=== PATIENT | female | born 1990 | race American Indian/Alaskan Native ===

== ENCOUNTER 2019-11-05 11:46 | Emergency (ER) | payer OTHER ==
[2019-11-05 12:02] VITALS: BP 116/78
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
--- NOTE | 2019-11-05 16:11 | XRay Report ---
CHEST 1 VIEW INDICATION: chest pain. COMPARISON: None FINDINGS: Support devices: None. Heart: Within normal limits. Lungs/Pleura: No acute air space or interstitial disease. Additional findings: None. IMPRESSION: 1. No acute findings. Signer Name: Melvin Muhammad MD Signed: 11/05/2019 4:06 PM Workstation Name: [id number]
== END 2019-11-05 17:28 | disposition home or self-care (01) ==
LOC: ED 11:46
DX: M54.2 Cervicalgia (principal); M54.5 Low back pain; V49.59XA Passenger injured in collision with other motor vehicles in traffic accident, initial encounter; Y93.89 Activity, other specified; Y92.488 Other paved roadways as the place of occurrence of the external cause; Y99.8 Other external cause status
CPT/HCPCS: 71045; 72040; 72100; 99283